=== PATIENT | male | born 1985 | race Caucasian/White ===

== ENCOUNTER 2017-12-02 09:20 | Emergency (ER) | payer BC ==
[2017-12-02] MEDS ORDERED: Ketorolac 60 MG/2 ML SDV IM ONE (10:14)
--- NOTE | 2017-12-02 10:34 | EDM.PDOC ---
ED HPI GENERAL MEDICAL PROBLEM - General Chief Complaint: General Stated Complaint: RIGHT SIDE OF CHEST PAIN FROM FALL Time Seen by Provider: 12/02/17 10:19 Source of Information: Reports: Patient History Limitations: Reports: No Limitations - History of Present Illness INITIAL COMMENTS - FREE TEXT/NARRATIVE: HISTORY AND PHYSICAL: History of present illness: patient is a 32-year-old male who presents to the emergency room with complaints of right-sided chest wall pain. He states he was walking on Saturday afternoon when he slipped and fell landing on the right side of his chest. Since that time he has had pain with coughing, deep breathing and rotation of his torso. Presents to the emergency room today with concerns he has rib fractures. He denies any fever, chills, chest pain or shortness of breath. Denies any hemoptysis. Review of systems: As per history of present illness and below otherwise all systems reviewed and negative. Past medical history: As per history of present illness and as reviewed below otherwise noncontributory. Surgical history: As per history of present illness and as reviewed below otherwise noncontributory. Social history: No reported history of drug or alcohol abuse. Family history: As per history of present illness and as reviewed below otherwise noncontributory. Physical exam: Gen.:Well-developed and well-nourished 32-year-old male. Alert and oriented. Nontoxic appearing and in no acute distress. HEENT: Atraumatic, normocephalic, pupils reactive, negative for conjunctival pallor or scleral icterus, mucous membranes moist, throat clear, neck supple, nontender, trachea midline. Lungs: Clear to auscultation, breath sounds equal bilaterally, chest wall tenderness to the right midline/axillary torso. Skin is intact, warm, dry with no bruising or redness. No soft tissue swelling noted. Heart: S1S2, regularate and rhythm without overt murmur Abdomen: Soft, nondistended, nontender. Negative for masses or hepatosplenomegaly. Negative for costovertebral tenderness. Pelvis: Stable nontender. Genitourinary: Deferred. Rectal: Deferred. Extremities: Atraumatic, moves all extremities per self without difficulty or deficits,negative for cords or calf pain. Neurovascular unremarkable. Neuro: Awake, alert, oriented. Cranial nerves II through XII unremarkable. Cerebellum unremarkable. Motor and sensory unremarkable throughout. Exam nonfocal. x-ray shows several nondisplaced fractures on the right side. We'll prescribe Clarendon 5/325, 20 tablets no refills. Incentive spirometer education was done and one sent home with the patient. Supportive care measures were reviewed. He voices understanding and is agreeable to plan of care. He denies any further questions at this time. Diagnostics: Chest x-ray with rib detail Therapeutics: IM toradol Impression: Rib fracture Chest wall contusion Plan: 1. You do have a rib fracture that is visible on x-ray. Please make sure you are still coughing and deep breathing; use your incentive spirometer every 3-4 hours to prevent any pneumonia. 2. He may use Tylenol and/or ibuprofen for daytime use. Clarendon has been prescribed for you for evening and home use. He may take 1-2 tabs every 4-6 hours as needed. This medication does contain acetaminophen so do not take more than 4,00mg (4gm) per day. Clarendon may cause drowsiness or do not take it while driving or needing to be functioning outside of the home. 3. Follow-up with your primary care provider in the next 1-2 days. Return to the ED as needed and as discussed. Definitive disposition and diagnosis as appropriate pending reevaluation and review of above. Onset Date: 11/29/17 Duration: Day(s): Location: Reports: Chest - Related Data Allergies Allergy/AdvReac Type Severity Reaction Status Date / Time codeine Allergy Hives Verified 08/21/15 13:33 Home Meds: Home Meds . [No Known Home Meds] 07/15/15 [History] Past Medical History - Past Surgical History Other HEENT Surgeries/Procedures: fractured jaw Other Musculoskeletal Surgeries/Procedures:: fractured arm Social & Family History - Tobacco Use Smoking Status *Q: Never Smoker Second Hand Smoke Exposure: No - Alcohol Use Days Per Week of Alcohol Use: 3 Number of Drinks Per Day: 4 Total Drinks Per Week: 12 - Recreational Drug Use Recreational Drug Use: No ED ROS GENERAL - Review of Systems Review Of Systems: ROS reveals no pertinent complaints other than HPI. ED EXAM, GENERAL - Physical Exam Exam: See Below (see dictation) Course - Orders/Labs/Meds Orders: Active Orders 24 hr Category Date Time Status Communication Order [RC] STAT Care 02/26/18 10:53 Active Incentive Spirometry [RT Incentive Spirometry] [RC] Care 12/02/17 10:53 Active STAT Meds: Medications Discontinued Medications Generic Name Dose Route Start Last Admin Trade Name Modesta PRN Reason Stop Dose Admin Ketorolac Tromethamine 60 mg 12/02/17 10:14 12/02/17 10:59 Toradol IM 12/02/17 10:15 60 mg ONETIME ONE Administration Departure - Departure Time of Disposition: 10:56 Disposition: Home, Self-Care 01 Clinical Impression: Rib fracture Qualifiers: Encounter type: initial encounter Rib fracture type: single rib Fracture type: closed Laterality: right Qualified Code(s): S22.31XA - Fracture of one rib, right side, initial encounter for closed fracture Chest wall contusion Qualifiers: Encounter type: initial encounter Laterality: right Qualified Code(s): S20.211A - Contusion of right front wall of thorax, initial encounter - Discharge Information Instructions: Chest Contusion, Adult, Rib Fracture Referrals: Doyle Bajwa MD [Primary Care Provider] - Forms: ED Department Discharge Additional Instructions: My general discharge The following information is given to patients seen in the emergency department who are being discharged to home. This information is to outline your options for follow-up care. We provide all patients seen in our emergency department with a follow-up referral. The need for follow-up, as well as the timing and circumstances, are variable depending upon the specifics of your emergency department visit. If you don't have a primary care physician on staff, we will provide you with a referral. We always advise you to contact your personal physician following an emergency department visit to inform them of the circumstance of the visit and for follow-up with them and/or the need for any referrals to a consulting specialist. The emergency department will also refer you to a specialist when appropriate. This referral assures that you have the opportunity for follow-up care with a specialist. All of these measure are taken in an effort to provide you with optimal care, which includes your follow-up. Under all circumstances we always encourage you to contact your private physician who remains a resource for coordinating your care. When calling for follow-up care, please make the office aware that this follow-up is from your recent emergency room visit. If for any reason you are refused follow-up, please contact the [facility] Emergency Department at and asked to speak to the emergency department charge nurse. [facility] [address] [place] [id number] 1. You do have a rib fracture that is visible on x-ray. Please make sure you are still coughing and deep breathing; use your incentive spirometer every 3-4 hours to prevent any pneumonia. 2. He may use Tylenol and/or ibuprofen for daytime use. Clarendon has been prescribed for you for evening and home use. He may take 1-2 tabs every 4-6 hours as needed. This medication does contain acetaminophen so do not take more than 4,00mg (4gm) per day. Clarendon may cause drowsiness or do not take it while driving or needing to be functioning outside of the home. 3. Follow-up with your primary care provider in the next 1-2 days. Return to the ED as needed and as discussed. - My Orders Last 24 Hours: My Active Orders 12/02/17 10:53 Communication Order [RC] STAT Incentive Spirometry [RT Incentive Spirometry] [RC] STAT - Assessment/Plan Last 24 Hours: My Active Orders 12/02/17 10:53 Communication Order [RC] STAT Incentive Spirometry [RT Incentive Spirometry] [RC] STAT
--- NOTE | 2017-12-02 11:09 | CR ---
EXAMINATION: PA chest and right ribs. HISTORY: Fall. FINDINGS: The trachea is midline. The cardiomediastinal silhouette is within normal limits. No pulmonary infilt rates, effusions or pneumothorax. Nondisplaced right eighth and ninth posterior fractures are noted. Also nondisplaced right sixth, sev enth, eighth, and ninth lateral rib fractures are noted. IMPRESSION: 1. No acute cardiopulmonary finding. 2. Several nondisplaced right rib fractures noted.
[2017-12-02 11:48] VITALS: BP 134/89
== END 2017-12-02 11:41 | disposition home or self-care (01) ==
LOC: MW.ED 09:20
DX: S22.31XA Fracture of one rib, right side, initial encounter for closed fracture (principal); Z88.5 Allergy status to narcotic agent; W01.0XXA Fall on same level from slipping, tripping and stumbling without subsequent striking against object, initial encounter; Y93.01 Activity, walking, marching and hiking
CPT/HCPCS: 71101; 96372; 99283; J1885